=== PATIENT | male | born 1960 | race Two or more races ===

== ENCOUNTER 2025-01-11 17:08 | Inpatient (IN) | payer OTHER ==
[~2025-01-11] VITALS: Ht 182.9 cm; Wt 93.0 kg
[2025-01-11] MEDS ORDERED: LEVOTHYROXINE25 MCG PO (17:40)
[2025-01-11] MEDS ORDERED: FAMOTIDINE/PF 20 MG in 0.9 % SODIUM CHLORIDE 8 ML IV PUSH STA (17:49)
[2025-01-11] MEDS ORDERED: 0.9 % SODIUM CHLORIDE 1,000 ML IV SCH ×2 (18:00→22:45)
[2025-01-11] MEDS ORDERED: ONDANSETRON HCL 2 MG/ML VIAL IV ONE (18:00)
[2025-01-11] MEDS ORDERED: KETOROLAC TROMETHAMINE 30 MG VIAL IV ONE (18:00)
[2025-01-11] MEDS ORDERED: KETOROLAC TROMETHAMINE 30 MG VIAL ONE (18:01)
[2025-01-11] MEDS ORDERED: ONDANSETRON HCL 2 MG/ML VIAL ONE (18:01)
[2025-01-11] MEDS ORDERED: FAMOTIDINE/PF 20 MG/2 ML VIAL ONE ×2 (18:01→23:40)
[2025-01-11] MEDS ORDERED: NAPHAZOLINE HCL/PHENIRAMINE 20 DR/ML DROPS OP ONE ×2 (19:00)
[2025-01-11 19:25] LABS: HEMATOCRIT 52.5 % (39.0-48.0); HEMOGLOBIN 17.7 g/dL (13-16.00); MEAN CELL VOLUME 81.4 fL (80.0-100.00); MEAN CORPUSCULAR HEMOGLOBIN 27.5 pg (27.00-32.0); MEAN CORPUSCULAR HGB CONC 33.8 g/dl (32.0-36.0); PLATELET COUNT 309 K/uL (150-450); RED BLOOD COUNT 6.46 M/uL (4.00-6.00); RED CELL DISTRIBUTION WIDTH 16.4 % (11.5-14.5)
[2025-01-11 20:03] LABS: ALBUMIN 4.4 gm/dL (3.4-5.0); BILIRUBIN TOTAL 3.5 mg/dL (0.3-1.2); BILIRUBIN,CONJUGATED 0.49 mg/dL (0.0-0.2); BILIRUBIN,UNCONJUGATED 3.01 mg/dL (0.0-0.6); CALCIUM 10.1 mg/dL (8.5-10.1); CREATININE SERUM 2.08 mg/dL (0.70-1.30); GFR 32.11; GLOBULINA 4.4 G/DL (2.4-3.5); POTASSIUM 4.03 mEq/L (3.5-5.1); TOTAL PROTEIN 8.8 gm/dL (6.4-8.2)
[2025-01-11] MEDS ORDERED: CEFTRIAXONE SODIUM 2,000 MG in 0.9 % SODIUM CHLORIDE 100 ML IV SCH (22:43)
[2025-01-11] MEDS ORDERED: FAMOTIDINE/PF 20 MG in 0.9 % SODIUM CHLORIDE 8 ML IV PUSH SCH (22:44)
[2025-01-11] MEDS ORDERED: ONDANSETRON HCL 4 MG in 0.9 % SODIUM CHLORIDE 50 ML IV PRN (22:45)
[2025-01-11] MEDS ORDERED: 0.9 % SODIUM CHLORIDE 1,000 ML IV ONE (22:45)
[2025-01-11] MEDS ORDERED: CEFTRIAXONE SODIUM 2,000 MG VIAL ONE (23:39)
[2025-01-11] MEDS ORDERED: METRONIDAZOLE/SODIUM CHLORIDE 500 MG/100 ML PIGGYBACK IV ONE (23:40)
[2025-01-12] MEDS ORDERED: METRONIDAZOLE/SODIUM CHLORIDE 100 ML IV SCH (01:00)
[2025-01-12 01:21] LABS: INR 1.05; PARTIAL THROMBOPLASTIN TIME 29.3 SECONDS (22.0-34.0); PROTHROMBIN TIME 11.4 SECONDS (9.0-11.5)
[2025-01-12 02:04] LABS: COVID-19 AG NEGATIVE (NEGATIVE)
[2025-01-12 04:30] VITALS: BP 127/79; O2SAT 94
[2025-01-12 04:42] LABS: ALBUMIN 3.4 gm/dL (3.4-5.0); BILIRUBIN TOTAL 2.07 mg/dL (0.3-1.2); BILIRUBIN,CONJUGATED 0.41 mg/dL (0.0-0.2); BILIRUBIN,UNCONJUGATED 1.66 mg/dL (0.0-0.6); CALCIUM 8.6 mg/dL (8.5-10.1); CREATININE SERUM 1.76 mg/dL (0.70-1.30); GFR 38.94; GLOBULINA 2.9 G/DL (2.4-3.5); POTASSIUM 3.87 mEq/L (3.5-5.1); TOTAL PROTEIN 6.3 gm/dL (6.4-8.2)
[2025-01-12] MEDS ORDERED: LEVOTHYROXINE SODIUM 75 MCG TABLET PO SCH (06:00)
[2025-01-12 09:20] VITALS: BP 118/76; O2SAT 98
[2025-01-12 16:00] VITALS: BP 127/71; O2SAT 95
[2025-01-13 01:07] VITALS: BP 134/76
[2025-01-13 05:43] LABS: HEMATOCRIT 37.5 % (39.0-48.0); HEMOGLOBIN 12.7 g/dL (13-16.00); MEAN CELL VOLUME 82.4 fL (80.0-100.00); MEAN CORPUSCULAR HEMOGLOBIN 27.9 pg (27.00-32.0); MEAN CORPUSCULAR HGB CONC 33.9 g/dl (32.0-36.0); PLATELET COUNT 203 K/uL (150-450); RED BLOOD COUNT 4.55 M/uL (4.00-6.00)
[2025-01-13 06:38] LABS: BILIRUBIN TOTAL 1.44 mg/dL (0.3-1.2); CALCIUM 8.7 mg/dL (8.5-10.1); CREATININE SERUM 1.35 mg/dL (0.70-1.30); GFR 52.88; GLOBULINA 2.6 G/DL (2.4-3.5); MAGNESIUM 2.3 mg/dL (1.8-2.4); PHOSPHOROUS 2.6 mg/dL (2.5-4.9); POTASSIUM 4.08 mEq/L (3.5-5.1); TOTAL PROTEIN 5.6 gm/dL (6.4-8.2)
[2025-01-13 06:44] LABS: C-REACTIVE PROTEIN 1.91 MG/DL (0.00-0.29)
[2025-01-13 09:04] VITALS: BP 115/66; O2SAT 97
[2025-01-13] MEDS ORDERED: PANTOPRAZOLE SODIUM 4 MG/ML REDILUIDO IV SCH (11:30)
[2025-01-13] MEDS ORDERED: PANTOPRAZOLE SODIUM 80 MG in 0.9 % SODIUM CHLORIDE 100 ML IV SCH (11:45)
[2025-01-13 18:24] VITALS: BP 142/80
[2025-01-14 01:17] VITALS: BP 149/75; O2SAT 98
[2025-01-14 09:33] VITALS: BP 123/70
[2025-01-14] MEDS ORDERED: PANTOPRAZOLE SODIUM 40 MG/VIAL VIAL ONE (10:03)
[2025-01-14 15:27] LABS: HEMATOCRIT 37.5 % (39.0-48.0); HEMOGLOBIN 12.9 g/dL (13-16.00); MEAN CELL VOLUME 81.1 fL (80.0-100.00); MEAN CORPUSCULAR HGB CONC 34.5 g/dl (32.0-36.0); PLATELET COUNT 216 K/uL (150-450); RED BLOOD COUNT 4.62 M/uL (4.00-6.00); RED CELL DISTRIBUTION WIDTH 15.5 % (11.5-14.5)
[2025-01-14 15:33] LABS: ALBUMIN 3.3 gm/dL (3.4-5.0); BILIRUBIN TOTAL 1.07 mg/dL (0.3-1.2); CALCIUM 8.6 mg/dL (8.5-10.1); CREATININE SERUM 1.15 mg/dL (0.70-1.30); GFR 63.62; GLOBULINA 2.9 G/DL (2.4-3.5); MAGNESIUM 2.2 mg/dL (1.8-2.4); PHOSPHOROUS 2.1 mg/dL (2.5-4.9); POTASSIUM 4.23 mEq/L (3.5-5.1); TOTAL PROTEIN 6.2 gm/dL (6.4-8.2)
[2025-01-14 15:52] LABS: C-REACTIVE PROTEIN 1.26 MG/DL (0.00-0.29)
[2025-01-14 17:48] VITALS: BP 146/89
[2025-01-15 01:00] VITALS: BP 140/57; O2SAT 97
[2025-01-15 07:36] LABS: HEMATOCRIT 36.5 % (39.0-48.0); HEMOGLOBIN 12.7 g/dL (13-16.00); MEAN CELL VOLUME 80.6 fL (80.0-100.00); MEAN CORPUSCULAR HGB CONC 34.8 g/dl (32.0-36.0); PLATELET COUNT 208 K/uL (150-450); RED BLOOD COUNT 4.53 M/uL (4.00-6.00); RED CELL DISTRIBUTION WIDTH 15.6 % (11.5-14.5)
[2025-01-15 09:29] VITALS: BP 143/74
[2025-01-15 19:34] VITALS: BP 142/84
[2025-01-16] VITALS: BP 142/81; O2SAT 98
[2025-01-16 09:09] VITALS: BP 146/81; O2SAT 96
[2025-01-16] MEDS ORDERED: fentaNYL CITRATE 50 MCG/ML AMPUL IV PUSH ONE (10:00)
[2025-01-16] MEDS ORDERED: MIDAZOLAM HCL 2 MG/2 ML VIAL IV ONE (10:00)
[2025-01-16] MEDS ORDERED: DIPHENHYDRAMINE HCL 50 MG/ML VIAL 1ML IV NR (10:00)
[2025-01-16] MEDS ORDERED: METRONIDAZOLE/SODIUM CHLORIDE 500 MG/100 ML PIGGYBACK IV ONE (18:23)
[2025-01-16] MEDS ORDERED: MORPHINE SULFATE 4 MG/ML VIAL IV ONE ×2 (19:40→20:40)
[2025-01-16] MEDS ORDERED: ONDANSETRON HCL 2 MG/ML VIAL ONE (19:46)
[2025-01-16 23:29] VITALS: BP 141/85; O2SAT 97
[2025-01-17 03:01] VITALS: BP 136/79
[2025-01-17] MEDS ORDERED: ACETAMINOPHEN 500 MG GEL..CAP PO PRN (08:15)
[2025-01-17 08:58] VITALS: BP 143/70
[2025-01-17 18:07] LABS: HEMATOCRIT 38.4 % (39.0-48.0); HEMOGLOBIN 12.9 g/dL (13-16.00); MEAN CELL VOLUME 82.2 fL (80.0-100.00); MEAN CORPUSCULAR HEMOGLOBIN 27.6 pg (27.00-32.0); MEAN CORPUSCULAR HGB CONC 33.6 g/dl (32.0-36.0); PLATELET COUNT 218 K/uL (150-450); RED BLOOD COUNT 4.67 M/uL (4.00-6.00); RED CELL DISTRIBUTION WIDTH 16.3 % (11.5-14.5)
[2025-01-17 18:09] VITALS: BP 130/76; O2SAT 97
[2025-01-17 18:27] LABS: ALBUMIN 3.2 gm/dL (3.4-5.0); BILIRUBIN TOTAL 1.07 mg/dL (0.3-1.2); CALCIUM 8.5 mg/dL (8.5-10.1); CREATININE SERUM 1.14 mg/dL (0.70-1.30); GFR 64.27; GLOBULINA 2.6 G/DL (2.4-3.5); POTASSIUM 3.65 mEq/L (3.5-5.1); TOTAL PROTEIN 5.8 gm/dL (6.4-8.2)
[2025-01-18 02:44] VITALS: BP 132/71; O2SAT 95
[2025-01-18] MEDS ORDERED: CEFTRIAXONE SODIUM 2,000 MG VIAL ONE (07:55)
[2025-01-18 10:04] VITALS: BP 143/87; O2SAT 97
== END 2025-01-18 12:25 | disposition home or self-care (01) | DRG 418 ==
LOC: ER 17:09 → MEDI 22:46
PROVIDERS: General Practice; Internal Medicine; Internal Medicine Infectious Disease; Specialist; ADMIT Internal Medicine; ATTEND Internal Medicine
PROC: BW40ZZZ Ultrasonography of Abdomen (ICD-10-PCS; 2025-01-11)
PROC: BF37ZZZ Magnetic Resonance Imaging (MRI) of Pancreas (ICD-10-PCS; 2025-01-11)
PROC: 0DB68ZX Excision of Stomach, Via Natural or Artificial Opening Endoscopic, Diagnostic (ICD-10-PCS; 2025-01-16)
PROC: 0DB78ZX Excision of Stomach, Pylorus, Via Natural or Artificial Opening Endoscopic, Diagnostic (ICD-10-PCS; 2025-01-16)
PROC: BF12YZZ Fluoroscopy of Gallbladder using Other Contrast (ICD-10-PCS; 2025-01-16)
PROC: 0FT44ZZ Resection of Gallbladder, Percutaneous Endoscopic Approach (ICD-10-PCS; principal; 2025-01-16 16:30)
DX: K80.00 Calculus of gallbladder with acute cholecystitis without obstruction (principal); I12.0 Hypertensive chronic kidney disease with stage 5 chronic kidney disease or end stage renal disease; N17.9 Acute kidney failure, unspecified; K92.2 Gastrointestinal hemorrhage, unspecified; N18.9 Chronic kidney disease, unspecified; E03.9 Hypothyroidism, unspecified; E11.22 Type 2 diabetes mellitus with diabetic chronic kidney disease; Z79.4 Long term (current) use of insulin

== ENCOUNTER 2025-02-10 15:32 | Emergency (ER) | payer OTHER ==
[~2025-02-10] VITALS: Ht 185.4 cm; Wt 83.9 kg
[~2025-02-10 15:32] MED LIST: LEVOTHYROXINE25 MCG PO
== END 2025-02-10 16:54 | disposition home or self-care (01) ==
LOC: ER 15:45
DX: L90.5 Scar conditions and fibrosis of skin (principal); Z90.49 Acquired absence of other specified parts of digestive tract; E03.8 Other specified hypothyroidism; N28.9 Disorder of kidney and ureter, unspecified

== ENCOUNTER 2025-04-06 21:29 | Emergency (ER) | payer OTHER ==
[~2025-04-06] VITALS: Ht 182.9 cm; Wt 95.3 kg
[2025-04-06] MEDS ORDERED: HYOSCYAMINE SULFATE 0.125 MG TAB.SUBL SL ONE (22:30)
[2025-04-06] MEDS ORDERED: FAMOtidine 10 MG/ML (4ML VIAL) IV ONE (22:30)
[2025-04-06 22:58] LABS: BASO % 0.4 % (0.1-1.2); EOS # 0.00 (0.04-0.54); EOS % 0.0 % (0.7-7.0); LYMPH # 0.25 (1.18-3.74); LYMPH % 4.8 % (19.3-53.1); MEAN PLATELET VOLUME 9.60 fl (9.4-12.4); MONO # 0.65 (0.24-0.82); NEUT # 4.24 (1.56-6.13); NEUT % 81.9 % (34.0-71.1); RED CELL DISTRIBUTION WIDTH 13.2 % (11.6-14.4)
[2025-04-06 23:01] LABS: MONO % 12.5 % (4.7-12.5)
[2025-04-06] MEDS ORDERED: PEPCID AC20 MG PO (23:48)
[2025-04-06] MEDS ORDERED: OSEL75CA PO (23:48)
[2025-04-06] MEDS ORDERED: ZYRTEC10 MG PO (23:48)
[2025-04-07] LABS: COVID-19 AG NEGATIVE (NEGATIVE)
== END 2025-04-07 00:21 | disposition home or self-care (01) ==
LOC: ER 21:57
PROVIDERS: General Practice
DX: J00 Acute nasopharyngitis [common cold] (principal); Z20.822 Contact with and (suspected) exposure to COVID-19; E03.8 Other specified hypothyroidism; Z88.3 Allergy status to other anti-infective agents

== ENCOUNTER 2025-06-03 18:19 | Emergency (ER) | payer OTHER ==
[~2025-06-03] VITALS: Ht 188 cm; Wt 97.5 kg
[~2025-06-03 18:19] MED LIST changes: +OSEL75CA PO; +PEPCID AC20 MG PO; +ZYRTEC10 MG PO
[2025-06-03] MEDS ORDERED: KETOROLAC TROMETHAMINE 60 MG VIAL IM STA (19:35)
[2025-06-03] MEDS ORDERED: CLONIDINE HCL 0.1 MG TABLET PO ONE (19:37)
[2025-06-03] MEDS ORDERED: KETOROLAC TROMETHAMINE 60 MG VIAL IM ONE (19:37)
[2025-06-03 19:57] LABS: BASO % 0.6 % (0.1-1.2); EOS # 0.03 (0.04-0.54); EOS % 0.3 % (0.7-7.0); LYMPH # 0.90 (1.18-3.74); LYMPH % 9.2 % (19.3-53.1); MEAN PLATELET VOLUME 9.00 fl (9.4-12.4); MONO # 0.76 (0.24-0.82); MONO % 7.8 % (4.7-12.5); NEUT # 8.02 (1.56-6.13); NEUT % 81.9 % (34.0-71.1); RED CELL DISTRIBUTION WIDTH 14.0 % (11.6-14.4)
[2025-06-03 21:08] LABS: BUN CREA RATIO 9.0 (7.0-25.0); CREATININE SERUM 1.06 mg/dL (0.70-1.30); GFR 69.9; GLUCOSE FASTING 94.0 mg/dL (65-100); OSMOLALITY SERUM 267.0 MOSM/KG (275-295)
== END 2025-06-03 23:31 | disposition home or self-care (01) ==
LOC: ER 18:19
DX: M25.562 Pain in left knee (principal); M20.12 Hallux valgus (acquired), left foot; I10 Essential (primary) hypertension; Z88.8 Allergy status to other drugs, medicaments and biological substances
CPT/HCPCS: 36415; 73560; 73630; 93005; 96372; 99284; J1885

== ENCOUNTER → 2025-06-08 | Emergency (ER) | payer OTHER ==
[~2025-06-08] VITALS: Ht 182.9 cm; Wt 95.3 kg
[~2025-06-08] MED LIST changes: +COZAAR50 MG
== END | disposition left against medical advice (07) ==
LOC: ER 19:42
DX: Z53.21 Procedure and treatment not carried out due to patient leaving prior to being seen by health care provider (principal)

== ENCOUNTER 2025-06-12 23:27 | Emergency (ER) | payer OTHER ==
[~2025-06-12] VITALS: Ht 180.3 cm; Wt 95.3 kg
[2025-06-12 23:50] VITALS: BP 151/85; O2SAT 98
== END 2025-06-13 | disposition left against medical advice (07) ==
LOC: ER 23:27
DX: Z53.21 Procedure and treatment not carried out due to patient leaving prior to being seen by health care provider (principal)

== ENCOUNTER 2025-06-22 02:26 | Emergency (ER) | payer OTHER ==
[~2025-06-22] VITALS: Ht 185.4 cm; Wt 90.7 kg
[2025-06-22] MEDS ORDERED: LEVO-T75 MCG PO (02:37)
[2025-06-22] MEDS ORDERED: NITROGLYCERIN 0.4 MG TAB.SUBL SL SCH (03:30)
[2025-06-22 04:27] LABS: BASO % 0.4 % (0.1-1.2); EOS # 0.00 (0.04-0.54); EOS % 0.0 % (0.7-7.0); LYMPH # 0.75 (1.18-3.74); LYMPH % 13.6 % (19.3-53.1); MEAN PLATELET VOLUME 8.80 fl (9.4-12.4); MONO # 0.57 (0.24-0.82); MONO % 10.4 % (4.7-12.5); NEUT # 4.14 (1.56-6.13); NEUT % 75.2 % (34.0-71.1); RED CELL DISTRIBUTION WIDTH 13.3 % (11.6-14.4)
[2025-06-22 04:44] LABS: INR 1.0
[2025-06-22 04:50] LABS: ALT/SGPT 42.0 U/L (12-78); AST/SGOT 41.0 U/L (15-37); BILIRUBIN TOTAL 1.86 mg/dL (0.3-1.2); BUN CREA RATIO 9.0 (7.0-25.0); CREATININE SERUM 1.24 mg/dL (0.70-1.30); GFR 58.15; GLOBULINA 3.3 G/DL (2.4-3.5); GLUCOSE FASTING 101.0 mg/dL (65-100); OSMOLALITY SERUM 266.0 MOSM/KG (275-295)
[2025-06-22 07:42] LABS: URINE BILIRRUBIN NEGATIVE (NEGATIVE); URINE BLOOD NEGATIVE; URINE GLUCOSE NEGATIVE (NEGATIVE); URINE KETONE NEGATIVE (NEGATIVE); URINE LEUKOCYTE NEGATIVE; URINE NITRATE NEGATIVE; URINE PROTEIN NEGATIVE (NEGATIVE); URINE UROBILINOGEN 0.2 E.U./dl
[2025-06-22 07:46] LABS: URINE APPEARANCE CLEAR; URINE COLOR YELLOW
[2025-06-22 07:47] LABS: URINE BACTERIA 2.3 uL (0.0-1933); URINE CAST 0.00 uL (0.0-1.40); URINE EPITHELIAL CELLS 0.3 uL (0.0-38.8); URINE RBC 1.1 uL (0.0-20.8); URINE WBC 1.2 uL (0.0-23.2)
== END 2025-06-22 09:29 | disposition home or self-care (01) ==
LOC: ER 02:26
PROVIDERS: General Practice
DX: R07.9 Chest pain, unspecified (principal); R20.0 Anesthesia of skin; Z88.8 Allergy status to other drugs, medicaments and biological substances